=== PATIENT | male | born 1975 | race American Indian/Alaskan Native ===

== ENCOUNTER 2017-04-18 03:25 | Emergency (ER) | payer SELFPAY ==
[2017-04-18] MEDS ORDERED: TORADOL IM ONE (09:46)
--- NOTE | 2017-04-18 09:58 | Emergency Department Report ---
ED Back Pain/Injury HPI - General Chief Complaint: Back Pain/Injury Stated Complaint: FLU SYMPTOMS Time Seen by Provider: 04/18/17 09:36 Source: patient Limitations: No Limitations - History of Present Illness Initial Comments: This is a 42-year-old male nontoxic, well nourished in appearance, no acute signs of distress presents to the ED with c/o of low back pain x3 days. Patient denies any trauma to the region. Patient stated that he has been working a lot and moving ladders and climbing ladders and picking up heavy equipment and then developed this pain. Patient he woke up in the morning after working with pain. Patient describes pain as aching 8 out of 10. Patient denies any numbness, tingling, bladder or bowel stability, fever, chills , nausea, vomiting, headache, dysuria, polyuria, hematuria, stiff neck, dental pain. Patient denies any chest pain or shortness of breath. Patient states allergies to codeine. Past medical history includes chronic back pain. MD Complaint: back pain -: days(s) (3) Similar Symptoms Previously: Yes Place: work Radiation: none Severity: mild Severity scale (0 -10): 8 Quality: aching Consistency: constant Improves With: none Worsens With: none Context: while lifting Associated Symptoms: denies other symptoms. denies: confusion, weakness, chest pain, numbness, difficulty walking, cough, difficulty urinating, diaphoresis, incontinence, fever/chills, constipation, headaches, abdominal pain, loss of appetite, malaise, nausea/vomiting, rash, seizure, shortness of breath, syncope - Related Data Previous Rx's Medication Instructions Recorded Last Taken Type Cyclobenzaprine [Flexeril] 10 mg PO QHS PRN #7 tablet 04/18/17 Unknown Rx Ibuprofen [Motrin] 600 mg PO Q8H PRN #30 tablet 04/18/17 Unknown Rx Allergies Allergy/AdvReac Type Severity Reaction Status Date / Time codeine Allergy Unknown Verified 12/07/13 23:56 ED Review of Systems ROS: Stated complaint: FLU SYMPTOMS Other details as noted in HPI Constitutional: denies: chills, fever Eyes: denies: eye pain, eye discharge, vision change ENT: denies: ear pain, throat pain Respiratory: denies: cough, shortness of breath, wheezing Cardiovascular: denies: chest pain, palpitations Endocrine: no symptoms reported Gastrointestinal: denies: abdominal pain, nausea, diarrhea Genitourinary: denies: urgency, dysuria Musculoskeletal: back pain. denies: joint swelling, arthralgia Skin: denies: rash, lesions Neurological: denies: headache, weakness, paresthesias Psychiatric: denies: anxiety, depression Hematological/Lymphatic: denies: easy bleeding, easy bruising ED Past Medical Hx - Past Medical History Previous Medical History?: No Additional medical history: chronic back pain - Surgical History Past Surgical History?: Yes Additional Surgical History: repair fx l) ankle - Social History Smoking Status: Never Smoker - Medications Home Medications: Home Medications Medication Instructions Recorded Confirmed Last Taken Type Cyclobenzaprine [Flexeril] 10 mg PO QHS PRN #7 tablet 04/18/17 Unknown Rx Ibuprofen [Motrin] 600 mg PO Q8H PRN #30 tablet 04/18/17 Unknown Rx ED Physical Exam - General Limitations: No Limitations General appearance: alert, in no apparent distress - Head Head exam: Present: atraumatic, normocephalic, normal inspection - Eye Eye exam: Present: normal appearance, PERRL, EOMI. Absent: scleral icterus, conjunctival injection, nystagmus, periorbital swelling, periorbital tenderness Pupils: Present: normal accommodation - ENT ENT exam: Present: normal exam, normal orophraynx, mucous membranes moist, TM's normal bilaterally, normal external ear exam - Neck Neck exam: Present: normal inspection, full ROM. Absent: tenderness, meningismus, lymphadenopathy, thyromegaly - Respiratory Respiratory exam: Present: normal lung sounds bilaterally. Absent: respiratory distress, wheezes, rales, rhonchi, stridor, chest wall tenderness, accessory muscle use, decreased breath sounds, prolonged expiratory - Cardiovascular Cardiovascular Exam: Present: regular rate, normal rhythm, normal heart sounds. Absent: bradycardia, tachycardia, irregular rhythm, systolic murmur, diastolic murmur, rubs, gallop - GI/Abdominal GI/Abdominal exam: Present: soft, normal bowel sounds. Absent: distended, tenderness, guarding, rebound, rigid, diminished bowel sounds - Rectal Rectal exam: Present: deferred - Extremities Exam Extremities exam: Present: normal inspection, full ROM, normal capillary refill. Absent: tenderness, pedal edema, joint swelling, calf tenderness - Back Exam Back exam: Present: normal inspection, full ROM, paraspinal tenderness (lumbar region). Absent: tenderness, CVA tenderness (R), CVA tenderness (L), muscle spasm, vertebral tenderness, rash noted - Expanded Back Exam Expanded Back exam: Present: normal rectal tone (as per patient). Absent: saddle anesthesia Back exam: Negative Straight Leg Raising: Left, Right - Neurological Exam Neurological exam: Present: alert, oriented X3, CN II-XII intact, normal gait, reflexes normal - Psychiatric Psychiatric exam: Present: normal affect, normal mood - Skin Skin exam: Present: warm, dry, intact, normal color. Absent: rash ED Course Vital Signs 04/18/17 05:56 Temperature 98.3 F Pulse Rate 74 Respiratory 18 Rate Blood Pressure 105/71 O2 Sat by Pulse 98 Oximetry - Reevaluation(s) Reevaluation #1: 04/18/17 10:00 Patient is speaking in full sentences with no signs of distress noted. ED Medical Decision Making - Medical Decision Making This 39-year-old male presents with low back strain. Patient is stable and was examined by me. Patient has paraspinal tenderness on the lumbar region. Patient received Toradol 30 mg IM in the ED which patient stated that symptoms is improving and is subsided. Patient denies any urinary symptoms. Patient is discharged with Flexeril and Motrin. Patient was instructed not to operate any machinery while taking Flexeril due to drowsiness. Patient was instructed Follow-up with a primary care doctor in 3-5 days or if symptoms worsen and continue return to emergency room as soon as possible. At time time of discharge, the patient does not seem toxic or ill in appearance. No acute signs of distress noted. Patient agrees to discharge treatment plan of care. No further questions noted by the patient. Critical care attestation.: If time is entered above; I have spent that time in minutes in the direct care of this critically ill patient, excluding procedure time. ED Disposition Clinical Impression: Low back strain Qualifiers: Encounter type: initial encounter Qualified Code(s): S39.012A - Strain of muscle, fascia and tendon of lower back, initial encounter Disposition: TO HOME OR SELFCARE Is pt being admited?: No Does the pt Need Aspirin: No Condition: Stable Instructions: Low Back Strain (ED), Ibuprofen (By mouth), Cyclobenzaprine (By mouth) Additional Instructions: Follow-up with your primary care doctor in 3-5 days or if symptoms worsen such as bladder or bowel stability, chest pain, short of breath, numbness or tingling sensation in extremities, headache, dizziness, visual changes, nausea vomiting, or abdominal pain, return back to emergency room as was possible. Take ibuprofen and Flexeril as prescribed. Do not operate heavy machinery while taking Flexeril due to sedation Prescriptions: Cyclobenzaprine [Flexeril] 10 mg PO QHS PRN #7 tablet PRN Reason: Muscle Spasm Ibuprofen [Motrin] 600 mg PO Q8H PRN #30 tablet PRN Reason: Pain Referrals: PRIMARY CARE, [Primary Care Provider] - 3-5 Days JUSTUS ZAPATA MD [Staff Physician] - 3-5 Days [facility] [Outside] - 3-5 Days [facility] [Outside] - 3-5 Days Forms: Work/School Release Form(ED)
[2017-04-18 11:06] VITALS: BP 105/64
== END 2017-04-18 11:07 | disposition home or self-care (01) ==
LOC: ED 03:25
DX: S39.012A Strain of muscle, fascia and tendon of lower back, initial encounter (principal); G89.29 Other chronic pain; Z88.5 Allergy status to narcotic agent; X58.XXXA Exposure to other specified factors, initial encounter; Y93.89 Activity, other specified; Y99.8 Other external cause status; Y92.89 Other specified places as the place of occurrence of the external cause
CPT/HCPCS: 96372; 99282; J1885

== ENCOUNTER 2017-06-02 03:34 | Emergency (ER) | payer SELFPAY ==
[2017-06-02 04:21] VITALS: BP 144/99
== END 2017-06-02 05:06 | disposition left against medical advice (07) ==
LOC: ED 03:34
DX: J34.89 Other specified disorders of nose and nasal sinuses (principal); Z53.21 Procedure and treatment not carried out due to patient leaving prior to being seen by health care provider

== ENCOUNTER 2020-01-29 15:41 | Emergency (ER) | payer SELFPAY ==
[2020-01-29 15:51] VITALS: BP 119/87
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
== END 2020-01-29 18:36 | disposition home or self-care (01) ==
LOC: ED 15:41
DX: S13.4XXA Sprain of ligaments of cervical spine, initial encounter (principal); M62.830 Muscle spasm of back; Z88.8 Allergy status to other drugs, medicaments and biological substances; V89.2XXA Person injured in unspecified motor-vehicle accident, traffic, initial encounter; Y93.89 Activity, other specified; Y92.410 Unspecified street and highway as the place of occurrence of the external cause; Y99.8 Other external cause status
CPT/HCPCS: 99282